=== PATIENT | male | born 1980 | race Caucasian/White ===

== ENCOUNTER → 2021-06-29 | Outpatient (CLI) | payer BC ==
[2021-06-29 16:34] LABS: HCT 42.9 % (39.6-50.0); HGB 13.7 g/dL (13.0-17.0); MCH 30.2 pg (27.0-32.0); MCHC 31.9 g/dL (32.0-37.0); MCV 94.5 fL (80.0-97.0); Mean Platelet Volume 10.1 fL (9.5-12.2); NRBC Per 100 WBC 0 /100 WBCS (0.0-0.0); Platelet Count 403 X 10*3/uL (140-440); RBC 4.54 X 10*6/uL (4.40-5.60); RDW 13.4 % (11.5-14.5); WBC 8.86 X 10*3/uL (4.50-10.00)
[2021-06-29 17:03] LABS: % Iron Saturation 59.52 (15.00-50.00); Ferritin 86.6 ng/mL (22.0-322.0); Iron 145 ug/dL (65-175); Total Iron Binding Capacity 244 ug/dL (228-460); Vitamin B12 >2000.0 pg/mL (200.0-944.0)
== END | disposition home or self-care (01) ==
LOC: LABWHC1 10:53
PROVIDERS: ATTEND Internal Medicine
DX: D50.9 Iron deficiency anemia, unspecified (principal); D51.9 Vitamin B12 deficiency anemia, unspecified
CPT/HCPCS: 36415; 82607; 82728; 83540; 83550; 85027